=== PATIENT | female | born 1995 | race Caucasian/White ===

== ENCOUNTER 2017-04-12 09:42 | Emergency (ER) | payer OTHER ==
[~2017-04-12] VITALS: Ht 170.2 cm; Wt 61.1 kg
[2017-04-12 09:48] VITALS: TEMP 37.2; Ht 170.2 cm; Wt 61.1 kg
[2017-04-12] MEDS ORDERED: PRED10TA PO (10:00)
[2017-04-12] MEDS ORDERED: BCPILLS PO (10:00)
--- NOTE | 2017-04-12 10:18 | EMERGENCY ROOM VISIT NOTE ---
History Report prepared by Yudelka: Jb Orozco Under the Supervision of: Dr. Alex Mccarty M.D. First contact with patient: 10:00 Chief Complaint: SORETHROAT Stated Complaint: SORE THROAT, HIVES, COUGH, MUCUS History of Present Illness The patient is a 21 year old female who presents to the Emergency Room with complaints of a persistent illness that started about 10 days ago. She says that she was diagnosed with an ear infection 9 days ago, and was prescribed Amoxicillin. She states that 5 days ago, she started to get white spots on her throat as well as a sore throat, and she was concerned because she had the same white spots when she had mononucleosis 3 years ago. The patient says that she continued to feel " and weak", so she went to [facility] again. She adds that 4 days ago, she noticed that she had a bad yeast vaginal infection, and then she started to get hives on her stomach and back. She adds that she has had a lot of mucus in her throat with a cough. The patient says that 2 days ago , she went to [facility] a third time, and realized that she had hives on her neck. She was taken off of the Amoxicillin, and was put on Prednisone, and had a culture put out to test for strep. The patient notes that most of her spots have cleared on her throat, but the hives got worse while on the Prednisone. She adds that she is on control. Source of History: patient Onset: 10 days ago Position: other (global - illness) Timing: other (persistent) Associated Symptoms: + sorethroat (with white spots in throat), + cough, + weakness, + rash Note: Associated symptoms: Bad yeast vaginal infection. Mucus in throat. Review of Systems All systems have been listed, reviewed, and are negative other than those previously mentioned. Please see Additional Medical History Sheet. Past Medical & Surgical Medical Problems: (1) Mononucleosis (2) No pertinent past medical history Family History No pertinent family history Social History Smoking Status: Never Smoker Marital Status: single Housing Status: lives with roommate Occupation Status: [employer] student Current/Historical Medications Scheduled Control Pills ( Control Pills), 1 TAB PO DAILY Prednisone (Prednisone), 0 PO UD Allergies Coded Allergies: Amoxicillin (Verified Allergy, Intermediate, RASH, 04/12/17) Physical Exam Vital Signs Date Time Temp Pulse Resp B/P (MAP) Pulse Ox O2 Delivery O2 Flow Rate FiO2 04/12/17 11:43 96 18 126/62 97 04/12/17 10:32 Room Air 04/12/17 09:48 37.2 98 20 132/87 97 Room Air Physical Exam GENERAL: Patient awake, alert, oriented x 3. Patient follows commands. Patient does not appear toxic. Patient is adequately hydrated and well- nourished. SKIN: Blanching red confluent rash around the neck and a bit on the abdomen. HEENT: Normal head, pupils equal, reactive to light and accommodation. Ears normal. Slight throat erythema, no significant puss. No tonsillar hypertrophy. Neck: bilateral cervical adenopathy. LUNGS: Clear to auscultation. No wheezes, no rales, no rhonchi. HEART: No murmurs. No gallops. No rubs ABDOMEN: Soft, nontender. EXTREMITIES: No signs of trauma or infection. No pedal or pretibial edema. No calf or thigh tenderness. NEUROLOGIC: Cranial nerves II-XII within normal limits. No gross motor sensory function deficits. Medical Decision & Procedures Laboratory Results 04/12/17 10:25 Red Blood Count 4.40, Mean Corpuscular Volume 91.6, Mean Corpuscular Hemoglobin 31.6, Mean Corpuscular Hemoglobin Concent 34.5, Mean Platelet Volume 11.0, Neutrophils (%) (Auto) 65.7, Lymphocytes (%) (Auto) 23.3, Monocytes (%) (Auto) 10.5, Eosinophils (%) (Auto) 0.0, Basophils (%) (Auto) 0.4, Neutrophils # (Auto ) 4.70, Lymphocytes # (Auto) 1.67, Monocytes # (Auto) 0.75, Eosinophils # (Auto ) 0.00, Basophils # (Auto) 0.03 04/12/17 10:25 Test 04/12/17 10:25 White Blood Count 7.16 K/uL (4.8-10.8) Red Blood Count 4.40 M/uL (4.2-5.4) Hemoglobin 13.9 g/dL (12.0-16.0) Hematocrit 40.3 % (37-47) Mean Corpuscular Volume 91.6 fL (80-100) Mean Corpuscular Hemoglobin 31.6 pg (25-34) Mean Corpuscular Hemoglobin Concent 34.5 g/dl (32-36) Platelet Count 196 K/uL (130-400) Mean Platelet Volume 11.0 fL (7.4-10.4) Neutrophils (%) (Auto) 65.7 % Lymphocytes (%) (Auto) 23.3 % Monocytes (%) (Auto) 10.5 % Eosinophils (%) (Auto) 0.0 % Basophils (%) (Auto) 0.4 % Neutrophils # (Auto) 4.70 K/uL (1.4-6.5) Lymphocytes # (Auto) 1.67 K/uL (1.2-3.4) Monocytes # (Auto) 0.75 K/uL (0.11-0.59) Eosinophils # (Auto) 0.00 K/uL (0-0.5) Basophils # (Auto) 0.03 K/uL (0-0.2) RDW Standard Deviation 43.7 fL (36.4-46.3) RDW Coefficient of Variation 12.9 % (11.5-14.5) Immature Granulocyte % (Auto) 0.1 % Immature Granulocyte # (Auto) 0.01 K/uL (0.00-0.02) Anion Gap 7.0 mmol/L (3-11) Est Creatinine Clear Calc Drug Dose 113.4 ml/min Estimated GFR () 129.7 Estimated GFR (Non- 111.9 BUN/Creatinine Ratio 11.0 (10-20) Calcium Level 9.4 mg/dl (8.5-10.1) Monoscreen NEG (NEG) Laboratory results as stated above per my review. ED Course 1001: Past medical records reviewed. The patient was evaluated in room C6. A complete history and physical examination was performed. 1123: Upon reevaluation, the patient appeared to be resting comfortably. I discussed today's findings with her. She verbalized agreement of the treatment plan. She was discharged home. Medical Decision I considered multiple diagnoses including acute pharyngitis, viral vs bacterial , allergic reaction, mononucleosis. Rapid strep test was negative. White count is not elevated. Monospot was negative. The patient does not appear ill. She does have an erythematous rash consistent with an antibiotic allergy. The patient was encouraged to avoid all penicillins in the future. The patient will continue her course of prednisone. She is to take Benadryl as needed for itching. I do not believe she requires additional antibiotics. Medication Reconcilliation Current Medication List: was personally reviewed by me Blood Pressure Screening Patient's blood pressure: Normal blood pressure Impression Primary Impression: Antibiotic-induced allergic rash Additional Impression: Pharyngitis Scribe Attestation The scribe's documentation has been prepared under my direction and personally reviewed by me in its entirety. I confirm that the note above accurately reflects all work, treatment, procedures, and medical decision making performed by me. Departure Information Dispostion Home / Self-Care Referrals No Doctor, Assigned (PCP) Patient Instructions [facility] Additional Instructions Complete the course of prednisone. 25-50 mg of Benadryl every 6 hours as needed for itching. Follow-up here or with [facility] if your symptoms have not subsided within the next 5-7 days. Do not take any penicillin or penicillin derivatives in the future. Problem Qualifiers
[2017-04-12 10:42] LABS: BASO % 0.4 %; BASO ABS # 0.03 K/uL (0-0.2); COMPLETE YES; HEMATOCRIT 40.3 % (37-47); IG% 0.1 %; LYMPH % 23.3 %; LYMPH ABS # 1.67 K/uL (1.2-3.4); MEAN CELL VOLUME 91.6 fL (80-100); MEAN CORPUSCULAR HEMOGLOBIN 31.6 pg (25-34); MEAN CORPUSCULAR HGB CONC 34.5 g/dl (32-36); MONO % 10.5 %; NEUT % 65.7 %; PLATELET COUNT 196 K/uL (130-400); WHITE BLOOD COUNT 7.16 K/uL (4.8-10.8)
[2017-04-12 10:52] LABS: CALCIUM 9.4 mg/dl (8.5-10.1); CREATININE 0.77 mg/dl (0.60-1.20); POTASSIUM 3.5 mmol/L (3.5-5.1)
[2017-04-12 11:43] VITALS: BP 126/62; PULSE 96; O2SAT 97
== END 2017-04-12 11:44 | disposition home or self-care (01) ==
LOC: C.EDB 09:46 → C.EDC 11:44
DX: L27.0 Generalized skin eruption due to drugs and medicaments taken internally (principal); T36.0X5A Adverse effect of penicillins, initial encounter; J02.9 Acute pharyngitis, unspecified; Z79.3 Long term (current) use of hormonal contraceptives; Z86.19 Personal history of other infectious and parasitic diseases